=== PATIENT | female | born 1995 | race Two or more races ===

== ENCOUNTER 2018-01-23 20:04 | Emergency (ER) | payer SELFPAY | END 2018-01-23 21:02 | disposition home or self-care (01) | LOC: ER 20:04 | DX: L25.9 Unspecified contact dermatitis, unspecified cause (principal) | CPT/HCPCS: 99283 ==

== ENCOUNTER 2018-02-08 19:05 | Emergency (ER) | payer SELFPAY, BC ==
[2018-02-08 19:27] LABS: URINE HCG POC HCG POSITIVE (Negative)
[2018-02-08 20:02] LABS: ADD MAN DIFF? NO
[2018-02-08 20:08] LABS: BASO % 0 % (0-3); EOS # 0.2 x10^3/uL (0.0-0.7); EOS % 2 % (0-3); HEMATOCRIT 40.1 % (36.0-47.0); HEMOGLOBIN 13.8 g/dL (12.0-15.5); LYMPH # 3.2 x10^3/uL (1.0-4.8); LYMPH % 29 % (24-48); MEAN CORPUSCULAR HEMOGLOBIN 30 pg (25-35); MEAN CORPUSCULAR HGB CONC 34 g/dL (31-37); MEAN CORPUSCULAR VOLUME 87 fL (79-100); MONO # 0.8 x10^3/uL (0.0-1.1); MONO % 8 % (0-9); NEUT # 6.8 x10^3uL (1.8-7.7); NEUT % 61 % (31-73); PLATELET COUNT 236 x10^3/uL (140-400); RED BLOOD COUNT 4.61 x10^6/uL (3.50-5.40); RED CELL DISTRIBUTION WIDTH 13.4 % (11.5-14.5)
[2018-02-08 20:09] LABS: BILIRUBIN,URINE NEGATIVE (NEG); CLARITY,URINE CLEAR; COLOR,URINE YELLOW; GLUCOSE,URINE NEGATIVE (NEG); NITRITE,URINE NEGATIVE (NEG); PROTEIN,URINE NEGATIVE (NEG-TRACE); UROBILINOGEN,URINE 0.2 mg/dL (0.2 mg/dL)
[2018-02-08 20:17] LABS: NEG OBC SER NEG; POS OBC SER POS; PREG TEST PT QUAL POSITIVE (NEG)
[2018-02-08 20:18] LABS: ANION GAP 10 (6-14); BACTERIA,URINE 0 /HPF (0-FEW); BLOOD UREA NITROGEN 13 mg/dL (7-20); BUN/CREATININE RATIO 19 (6-20); CALCIUM 9.5 mg/dL (8.5-10.1); CARBON DIOXIDE 27 mmol/L (21-32); CHLORIDE 102 mmol/L (98-107); CREATININE 0.7 mg/dL (0.6-1.0); GFR 103.7; GLUCOSE 91 mg/dL (70-99); RBC,URINE 20-40 /HPF (0-2); SODIUM 139 mmol/L (136-145); SQUAMOUS EPITHELIAL CELL,UR MOD /LPF; WBC,URINE 0 /HPF (0-4)
[2018-02-08 20:24] LABS: ALBUMIN 4.1 g/dL (3.4-5.0); ALBUMIN/GLOBULIN RATIO 1.2 (1.0-1.7); ALK PHOS 80 U/L (46-116); ALT (SGPT) 29 U/L (14-59); AST (SGOT) 18 U/L (15-37); TOTAL BILIRUBIN 0.2 mg/dL (0.2-1.0); TOTAL PROTEIN 7.6 g/dL (6.4-8.2)
== END 2018-02-08 22:00 | disposition home or self-care (01) ==
LOC: ER 19:05
DX: O20.0 Threatened abortion (principal); Z3A.01 Less than 8 weeks gestation of pregnancy
CPT/HCPCS: 36415; 76801; 76817; 80053; 81001; 81025; 84702; 84703; 85025; 86900; 86901; 87491; 87591; 99285-25

== ENCOUNTER 2020-05-20 20:11 | Emergency (ER) | payer BC ==
[~2020-05-20] VITALS: Ht 160 cm; Wt 104.0 kg
[~2020-05-20 20:11] MED LIST: CLOB15CR TP
[2020-05-20 23:38] VITALS: BP 138/95
== END 2020-05-20 23:38 | disposition left against medical advice (07) ==
LOC: ER 20:11
DX: R50.9 Fever, unspecified (principal); Z53.21 Procedure and treatment not carried out due to patient leaving prior to being seen by health care provider
CPT/HCPCS: 81025

== ENCOUNTER 2021-04-06 20:10 | Emergency (ER) | payer OTHER ==
[~2021-04-06] VITALS: Ht 160 cm; Wt 104.0 kg
[2021-04-06 20:41] LABS: BILIRUBIN,URINE NEGATIVE (NEG); CLARITY,URINE CLEAR; COLOR,URINE YELLOW; NITRITE,URINE NEGATIVE (NEG); PROTEIN,URINE 30 mg/dL (NEG-TRACE)
[2021-04-06 20:50] LABS: BACTERIA,URINE FEW /HPF (0-FEW)
[2021-04-06] MEDS ORDERED: LIDO:MAALOX 1:1 20 ML SINGLE DOSE. SWSW ONE (21:45)
--- NOTE | 2021-04-06 21:48 | PHYS DOC ---
Past Medical History Past Medical History: Other Additional Past Medical Histor: PRECLAMPSIA Past Surgical History: Tonsillectomy Smoking Status: Current Every Day Smoker Alcohol Use: None Drug Use: None General Adult EDM: Chief Complaint: ABDOMINAL PAIN HPI: HPI: Patient is a 26 year old female with no past medical or surgical history presents with a chief complaint of epigastric abdominal pain. Patient states pain has been ongoing for 24 hours and has been constant since onset. Patient states pain does not radiate. She has some nausea but has not vomited. Patient states she has chronic diarrhea. Patient also states she has had some urinary frequency but denies any dysuria. Patient has been taking [id number] ibuprofen with no relief. Patient just started her menstrual cycle today. On exam patient's abdomen is soft without rebound or guarding. Review of Systems: Review of Systems: Review of systems: Constitutional symptoms- No fever, no chills. Eyes- No Discharge, No Visual Loss Respiratory symptoms- No shortness of breath, No wheezing, No Dyspnea on Exertion Cardiovascular Systems; No chest pain, No Palpitations, No syncope Gastrointestinal symptoms: Positive abdominal pain, Positive nausea, no vomiting or diarrhea. Genitourinary symptoms: No dysuria. Positive urinary frequency Musculoskeletal symptoms: No back pain No extremity pain. NEUROLOGICAL Symptoms: No headache, no generalized weakness; No focal Weakness Skin: No rash. Heart Score: C/O Chest Pain: N/A Risk Factors: Risk Factors: DM, Current or recent (<one month) smoker, HTN, HLP, family history of CAD, obesity. Risk Scores: Score 0 - 3: 2.5% MACE over next 6 weeks - Discharge Home Score 4 - 6: 20.3% MACE over next 6 weeks - Admit for Clinical Observation Score 7 - 10: 72.7% MACE over next 6 weeks - Early Invasive Strategies Current Medications: Current Medications Medications (Trade) Dose Ordered Sig/Edu Start Time Stop Time Status Last Admin Dose Admin Multi-Ingredient Mouthwash/Gargle (Gi Cocktail) 20 ml 1X ONCE 04/06/21 21:45 04/06/21 21:46 Allergies: Allergies: Allergies Coded Allergies Type Severity Reaction Last Updated Verified No Known Drug Allergies 07/16/14 No Physical Exam: PE: General: alert, no acute distress. Skin: warm, dry and intact, no erythema, no rash. HENT: bilateral external ears normal, oropharynx moist, nose normal. Head:: Normocephalic, atraumatic. Neck: Trachea midline. Eyes: EOMI, Normal conjunctiva, No drainage CARDIOVASCULAR: Regular rate and rhythm RESPIRATORY: No respiratory distress Back: Full range of motion. MUSCULOSKELETAL: Full range of motion of bilateral upper and lower extremities. GASTROINTESTINAL: Abdomen soft without rebound or guarding. Location of pain is in the epigastric region. NEUROLOGICAL: Alert and noted to person, place and time. No neurological deficits observed Psychiatric: Cooperative. Normal judgment Current Patient Data: Labs: Laboratory Tests Test 04/06/21 20:17 04/06/21 20:21 Urine Collection Type Unknown Urine Color Yellow Urine Clarity Clear Urine pH 6.0 (<5.0-8.0) Urine Specific [place] 1.025 (1.000-1.030) Urine Protein 30 mg/dL (NEG-TRACE) Urine Glucose (UA) Negative mg/dL (NEG) Urine Ketones (Stick) Negative mg/dL (NEG) Urine Blood Large (NEG) Urine Nitrite Negative (NEG) Urine Bilirubin Negative (NEG) Urine Urobilinogen Dipstick 1.0 mg/dL (0.2 mg/dL) Urine Leukocyte Esterase Negative (NEG) Urine RBC 3-5 /HPF (0-2) Urine WBC 1-4 /HPF (0-4) Urine Squamous Epithelial Cells Mod /LPF Urine Bacteria Few /HPF (0-FEW) Urine Mucus Mod /LPF POC Urine HCG, Qualitative Hcg negative (Negative) Vital Signs: Vital Signs Date Time Temp Pulse Resp B/P (MAP) Pulse Ox O2 Delivery O2 Flow Rate FiO2 04/06/21 21:28 98.2 98 109/70 (83) 97 98.2 04/06/21 20:26 Room Air EKG: EKG: [] Radiology/Procedures: Radiology/Procedures: [] Course & Med Decision Making: Course & Med Decision Making Pertinent Labs and Imaging studies reviewed. (See chart for details) [] Patient was evaluated for chief complaint. Work-up consisted of laboratory analysis. Results reviewed and discussed with patient. Patient's white count liver enzymes lipase within normal limits. Patient's urine without signs of infection. Treatment included GI cocktail with improvement. Patient advised to take Tylenol instead of ibuprofen. Patient will be prescribed Pepcid. Nellie Disclaimer: Nellie Disclaimer: This electronic medical record was generated, in whole or in part, using a voice recognition dictation system. Departure Departure Impression: Primary Impression: Abdominal pain Disposition: HOME / SELF CARE / HOMELESS Condition: STABLE Referrals: NO PCP (PCP) Patient Instructions: Abdominal Pain Scripts Famotidine (PEPCID) 40 Mg Tablet 40 MG PO HS, #20 TAB Prov: HAY KHAN DO 04/06/21 HAY KHAN DO Apr 06, 2021 21:48
[2021-04-06 22:26] LABS: BASO % 0 % (0-3); EOS # 0.3 x10^3/uL (0.0-0.7); EOS % 4 % (0-3); HEMATOCRIT 37.2 % (36.0-47.0); HEMOGLOBIN 12.3 g/dL (12.0-15.5); LYMPH # 2.8 x10^3/uL (1.0-4.8); LYMPH % 32 % (24-48); MEAN CORPUSCULAR HEMOGLOBIN 27 pg (25-35); MEAN CORPUSCULAR HGB CONC 33 g/dL (31-37); MEAN CORPUSCULAR VOLUME 80 fL (79-100); MONO # 0.5 x10^3/uL (0.0-1.1); MONO % 6 % (0-9); NEUT % 57 % (31-73); PLATELET COUNT 242 x10^3/uL (140-400); RED BLOOD COUNT 4.64 x10^6/uL (3.50-5.40); RED CELL DISTRIBUTION WIDTH 16.2 % (11.5-14.5); WHITE BLOOD COUNT 8.7 x10^3/uL (4.0-11.0)
[2021-04-06 22:38] LABS: CALCIUM 8.9 mg/dL (8.5-10.1); CREATININE 0.7 mg/dL (0.6-1.0); GFR 100.4; POTASSIUM 3.8 mmol/L (3.5-5.1)
[2021-04-06 22:43] LABS: ALBUMIN 3.4 g/dL (3.4-5.0); ALBUMIN/GLOBULIN RATIO 0.9 (1.0-1.7); TOTAL BILIRUBIN 0.2 mg/dL (0.2-1.0); TOTAL PROTEIN 7.3 g/dL (6.4-8.2)
[2021-04-06] MEDS ORDERED: FAMO40TA57 PO (22:51)
[2021-04-06 23:45] VITALS: BP 128/64
== END 2021-04-06 23:47 | disposition home or self-care (01) ==
LOC: ER 20:10
DX: R10.13 Epigastric pain (principal); R11.0 Nausea; F17.200 Nicotine dependence, unspecified, uncomplicated
CPT/HCPCS: 36415; 80053; 81001; 81025; 83690; 85025; 99283

== ENCOUNTER 2021-07-07 20:37 | Emergency (ER) | payer OTHER ==
[~2021-07-07] VITALS: Ht 160 cm; Wt 104.5 kg
[~2021-07-07 20:37] MED LIST changes: +FAMO40TA57 PO
[2021-07-07] MEDS ORDERED: FAMOTIDINE 20 MG/2 ML VIAL IVP ONE (21:00)
[2021-07-07] MEDS ORDERED: methylPREDNISolone SOD SUCC PF 125 MG/2 ML VIAL. IV ONE (21:00)
[2021-07-07] MEDS ORDERED: IV NORMAL SALINE 1000ML BAG 1,000 ML IV ONE (21:00)
--- NOTE | 2021-07-07 21:07 | PHYS DOC ---
Past Medical History Past Medical History: Other Additional Past Medical Histor: PRECLAMPSIA Past Surgical History: Tonsillectomy Smoking Status: Current Every Day Smoker Alcohol Use: None Drug Use: None General Adult EDM: Chief Complaint: ALLERGIC REACTION HPI: HPI: Patient is a 26 year old female who presents with patient states that she drinks more juice today and then soon began breaking out with hives on her top of her feet, bilateral arms, bilateral thighs. Patient states when she got here she began becoming really anxious and became short of breath and felt like she was in a pass out. She states she no longer feels that way. Patient states that at this time she has no shortness of breath, no chest pain, no wheezing, no abdominal pain, no nausea no vomiting no diarrhea no headache no dizziness no numbness or tingling no focal weakness. She states this is happened twice before but just put together that all the other time she also had something orange flavored when those incidents also. Review of Systems: Review of Systems: Constitutional: Denies fever or chills. [] Eyes: Denies change in visual acuity. [] HENT: Denies nasal congestion or sore throat. [] Respiratory: Denies cough or shortness of breath. [] Cardiovascular: Denies chest pain or edema. [] GI: Denies abdominal pain, nausea, vomiting, bloody stools or diarrhea. [] : Denies dysuria. [] Musculoskeletal: Denies back pain or joint pain. [] Integument: Denies rash. +Hives[] Neurologic: Denies headache, focal weakness or sensory changes. [] Endocrine: Denies polyuria or polydipsia. [] Lymphatic: Denies swollen glands. [] Psychiatric: Denies depression or anxiety. [] Heart Score: C/O Chest Pain: No Allergies: Allergies: Allergies Coded Allergies Type Severity Reaction Last Updated Verified No Known Drug Allergies 07/16/14 No Physical Exam: PE: Constitutional: Well developed, well nourished, no acute distress, non-toxic appearance. [] HENT: Normocephalic, atraumatic, bilateral external ears normal, oropharynx moist, no oral exudates, nose normal. [] Eyes: PERRLA, EOMI, conjunctiva normal, no discharge. [] Neck: Normal range of motion, no tenderness, supple, no stridor. [] Cardiovascular:Heart rate regular rhythm, no murmur [] Lungs & Thorax: Bilateral breath sounds clear to auscultation [] Abdomen: Bowel sounds normal, soft, no tenderness, no masses, no pulsatile masses. [] Skin: Warm, dry, no erythema, generalized hives rash to extremities. [] Back: No tenderness, no CVA tenderness. [] Extremities: No tenderness, no cyanosis, no clubbing, ROM intact, no edema. [] Neurologic: Alert and oriented X 3, normal motor function, normal sensory function, no focal deficits noted. [] Psychologic: Affect normal, judgement normal, mood normal. [] EKG: EKG: [] Radiology/Procedures: Radiology/Procedures: [] Course & Med Decision Making: Course & Med Decision Making Pertinent Labs and Imaging studies reviewed. (See chart for details) See HPI. Alert and oriented x4. Ambulatory steady gait. Speaks in full clear sentences. Lungs are clear to auscultation all lobes. Patient has generalized hives to her extremities. No swelling or hives inside of her mouth, in the back of her throat, or swelling to the tongue or face. Patient states that she took 50mg of Benadryl prior to arrival. Patient states she is feeling much better after Solu-Medrol, Pepcid and Benadryl which she took at home. Her hives have gone down. She will be placed on Zyrtec, prednisone, Pepcid for the next 5 days. [] Nellie Disclaimer: Nellie Disclaimer: This electronic medical record was generated, in whole or in part, using a voice recognition dictation system. Departure Departure Impression: Primary Impression: Allergic reaction Qualified Codes: T78.40XA - Allergy, unspecified, initial encounter Disposition: HOME / SELF CARE / HOMELESS Condition: STABLE Referrals: NO PCP (PCP) Patient Instructions: Allergies, Generic, Hives Additional Instructions: Follow-up with primary care provider if needed. Stay away from anything orange. Drink plenty of fluids. If you begin having wheezing, trouble breathing, facial swelling or tongue swelling return to the emergency room. If at any point that this happens you can use your EpiPen but you must call 911 and come to emergency room if you use your EpiPen. Scripts Epinephrine (EPIPEN 2-JAVI) 0.3 Mg/0.3 Ml Auto.injct 1 SYR IM ONCE PRN for ANAPHYLAXIS for 1 Day, #1 PACKET 0 Refills Prov: JAZMIN LAUGHLIN APRN 07/07/21 Cetirizine Hcl (ZYRTEC) 10 Mg Tablet 1 TAB PO DAILY, #5 TAB 2 Refills Prov: JAZMIN LAUGHLIN APRN 07/07/21 Famotidine (PEPCID) 20 Mg Tablet 20 MG PO BID, #10 TAB Prov: JAZMIN LAUGHLIN APRN 07/07/21 Prednisone (PREDNISONE) 20 Mg Tablet 1 TAB PO BID, #10 TAB Prov: JAZMIN LAUGHLIN APRN 07/07/21 JAZMIN LAUGHLIN APRN Jul 07, 2021 21:07
[2021-07-07] MEDS ORDERED: PRED20TA PO (22:20)
[2021-07-07] MEDS ORDERED: EPIPEN 2-P0.3 MG/0.3 IM (22:20)
[2021-07-07] MEDS ORDERED: CETI10TA74 PO (22:20)
[2021-07-07] MEDS ORDERED: FAMO-63 PO (22:20)
[2021-07-07 22:35] VITALS: BP 110/56
== END 2021-07-07 22:52 | disposition home or self-care (01) ==
LOC: ER 20:37
DX: T78.40XA Allergy, unspecified, initial encounter (principal); F17.200 Nicotine dependence, unspecified, uncomplicated
CPT/HCPCS: 96361; 96374; 96375; 99285; J2930; J3490; J7030